=== PATIENT | female | born 1995 | race American Indian/Alaskan Native ===

== ENCOUNTER 2020-08-14 13:35 | Emergency (ER) | payer SELFPAY ==
[2020-08-14 13:54] VITALS: BP 144/90
--- NOTE | 2020-08-14 14:20 | Emergency Department Report ---
ED Extremity Problem HPI - General Chief complaint: Extremity Injury, Lower Stated complaint: LT KNEE PAIN Time Seen by Provider: 08/14/20 14:14 Source: patient Mode of arrival: Ambulatory Limitations: No Limitations - History of Present Illness Initial comments: Is a pleasant 25-year-old female presents the emerge department chief complaint of left knee pain after a ground-level fall yesterday. She reports she was carrying a box up some steps when she tripped and fell. She denies any other injuries. She reports pain is elevated by movement. She rates a 6 out of 10 and points to the lateral portion of her ankle describes dull and throbbing aggravated with weightbearing. - Related Data Previous Rx's Medication Instructions Recorded Last Taken Type Naproxen [Naprosyn TAB] 500 mg PO BID #30 tablet 08/14/20 Unknown Rx Allergies Allergy/AdvReac Type Severity Reaction Status Date / Time No Known Allergies Allergy Verified 08/14/20 13:53 ED Review of Systems ROS: Stated complaint: LT KNEE PAIN Other details as noted in HPI Comment: All other systems reviewed and negative Constitutional: denies: chills, fever Eyes: denies: eye pain, eye discharge, vision change ENT: denies: ear pain, throat pain Respiratory: denies: cough, shortness of breath, wheezing Cardiovascular: denies: chest pain, palpitations Endocrine: no symptoms reported Gastrointestinal: denies: abdominal pain, nausea, diarrhea Genitourinary: denies: urgency, dysuria, discharge Musculoskeletal: as per HPI, arthralgia. denies: back pain, joint swelling Skin: denies: rash, lesions Neurological: denies: headache, weakness, paresthesias Psychiatric: denies: anxiety, depression Hematological/Lymphatic: denies: easy bleeding, easy bruising ED Past Medical Hx - Past Medical History Previous Medical History?: No - Surgical History Past Surgical History?: Yes Additional Surgical History: tonsillectomy - Social History Smoking Status: Current Every Day Smoker Substance Use Type: None - Medications Home Medications: Home Medications Medication Instructions Recorded Confirmed Last Taken Type Naproxen [Naprosyn TAB] 500 mg PO BID #30 tablet 08/14/20 Unknown Rx ED Physical Exam - General Limitations: No Limitations General appearance: alert, in no apparent distress - Head Head exam: Present: atraumatic, normocephalic - Eye Eye exam: Present: normal appearance, PERRL, EOMI Pupils: Present: normal accommodation - ENT ENT exam: Present: normal exam, normal orophraynx, mucous membranes moist - Neck Neck exam: Present: normal inspection, full ROM. Absent: tenderness, meningismus - Respiratory Respiratory exam: Present: normal lung sounds bilaterally. Absent: respiratory distress, wheezes, rales, rhonchi, stridor - Cardiovascular Cardiovascular Exam: Present: regular rate, normal rhythm, normal heart sounds. Absent: systolic murmur, diastolic murmur, rubs, gallop - GI/Abdominal GI/Abdominal exam: Present: soft, normal bowel sounds. Absent: distended, tenderness, guarding, rebound, rigid - Extremities Exam Extremities exam: Present: normal inspection, full ROM, tenderness, other (TTP to lateral left knee, no deformity. pain with varus/valgus strain ) - Back Exam Back exam: Present: normal inspection - Neurological Exam Neurological exam: Present: alert, oriented X3 - Psychiatric Psychiatric exam: Present: normal affect, normal mood - Skin Skin exam: Present: warm, dry, intact, normal color. Absent: rash ED Course Vital Signs 08/14/20 13:51 Temperature 98.5 F Pulse Rate 93 H Respiratory 20 Rate Blood Pressure 144/90 O2 Sat by Pulse 98 Oximetry ED Medical Decision Making - Radiology Data Radiology results: report reviewed, image reviewed Patient: SARAH TRUONG MR#: [id number] : 1995 Acct:[id number] Age/Sex: 25 / F ADM Date: 08/14/20 Loc: ED Attending Dr: Ordering Physician: RAMU POOL Date of Service: 08/14/20 Procedure(s): XR knee 3V LT Accession Number(s): [id number] cc: RAMU POOL Fluoro Time In Minutes: Left knee 3 views INDICATION: Pain FINDINGS: Mild tricompartmental degenerative change. No large effusion. No acute fracture or dislocation. Signer Name: Elan Carmona MD Signed: 08/14/2020 3:03 PM Workstation Name: [email or web address] Transcribed By: CW Dictated By: ARASELI CARMONA MD Electronically Authenticated By: ARASELI CARMONA MD Signed Date/Time: 08/14/20 1503 - Medical Decision Making X-rays are unremarkable. Patient will be given anti-inflammatories and outpatient follow-up with orthopedics. She is instructed to return to ER with any change or worsening symptoms. She is a low risk by Wells criteria for DVT and no clinical evidence of this. - Differential Diagnosis Strain, sprain, fracture Critical care attestation.: If time is entered above; I have spent that time in minutes in the direct care of this critically ill patient, excluding procedure time. ED Disposition Clinical Impression: Left knee sprain Qualifiers: Encounter type: initial encounter Involved ligament of knee: lateral collateral ligament Qualified Code(s): S83.422A - Sprain of lateral collateral ligament of left knee, initial encounter Disposition: TO HOME OR SELFCARE Is pt being admited?: No Condition: Stable Instructions: Knee Sprain, Adult, [id number] Prescriptions: Naproxen [Naprosyn TAB] 500 mg PO BID #30 tablet Referrals: VICKI BAHENA MD [Staff Physician] - 3-5 Days Forms: Work/School Release Form(ED) Time of Disposition: 15:20
--- NOTE | 2020-08-14 15:07 | XRay Report ---
Left knee 3 views INDICATION: Pain FINDINGS: Mild tricompartmental degenerative change. No large effusion. No acute fracture or dislocat ion. Signer Name: Elan Carmona MD Signed: 08/14/2020 3:03 PM Workstation Name: [email or web address] [id number]
== END 2020-08-14 15:50 | disposition home or self-care (01) ==
LOC: ED 13:35
DX: S83.92XA Sprain of unspecified site of left knee, initial encounter (principal); F17.200 Nicotine dependence, unspecified, uncomplicated; Z90.89 Acquired absence of other organs; Z79.899 Other long term (current) drug therapy; W01.0XXA Fall on same level from slipping, tripping and stumbling without subsequent striking against object, initial encounter; Y93.89 Activity, other specified; Y92.89 Other specified places as the place of occurrence of the external cause; Y99.8 Other external cause status

== ENCOUNTER 2021-08-07 20:25 | Emergency (ER) | payer SELFPAY ==
[2021-08-08 03:21] VITALS: BP 149/92
== END 2021-08-08 03:22 | disposition home or self-care (01) ==
LOC: ED 20:25
DX: M79.671 Pain in right foot (principal); Z53.21 Procedure and treatment not carried out due to patient leaving prior to being seen by health care provider
CPT/HCPCS: 82962